=== PATIENT | female | born 1975 | race Caucasian/White ===

== ENCOUNTER 2021-09-29 10:54 | Outpatient (CLI) | payer OTHER | END 2021-09-29 10:55 | disposition home or self-care (01) | LOC: CSHULT 10:54 | PROVIDERS: ATTEND Nurse Practitioner Family | DX: R10.13 Epigastric pain (principal); I81 Portal vein thrombosis; R93.2 Abnormal findings on diagnostic imaging of liver and biliary tract | CPT/HCPCS: 74170; 76700 ==